=== PATIENT | female | born 1955 | race Caucasian/White ===

== ENCOUNTER 2018-01-27 19:39 | Emergency (ER) | payer BC ==
[~2018-01-27 19:39] MED LIST: ALPR0.25 PO; BUPR300T PO; CYCL10TA PO; DIAZ5TAB PO; ESCI20TA PO; FLUT50SP EACH NARE; MELO7.5T27 PO; PENL8SOL TOPICAL; VALA500T PO; ZALE5CAP PO
[2018-01-28] MEDS ORDERED: BACT800T5 PO (01:03)
== END 2018-01-27 20:53 | disposition left against medical advice (07) ==
LOC: PHED 19:39
DX: R68.89 Other general symptoms and signs (principal)
CPT/HCPCS: 99281

== ENCOUNTER 2018-01-27 20:28 | Emergency (ER) | payer BC ==
[~2018-01-27] VITALS: Ht 157.5 cm; Wt 72.0 kg
[2018-01-27 21:29] VITALS: BP 128/68; PULSE 121; RESP 16; TEMP 100.5; O2SAT 97
[2018-01-27] MEDS ORDERED: SODIUM CHLOR 0.9% 1000 ML INJ 1,000 ML IV SCH (22:08)
--- NOTE | 2018-01-27 22:13 | PD ---
HPI Chief Complaint: Pain: Acute or Chronic Time Seen by Provider: 21:59 Travel History International Travel<30 days: No Contact w/Intl Traveler<30days: No Traveled to known affect area: No History of Present Illness HPI 62-year-old female with past medical history only significant for depression. She presents for evaluation of diarrhea, fevers, chills, myalgias. She reports that she had Molplex roll yesterday evening. Approximately 1 hour later she developed severe diarrhea. She reports numerous episodes of watery stool throughout the night. Diarrhea resolved this morning but she did take some Imodium at some point today. She reports that this evening she developed fevers, chills, myalgias. Maximum temperature at home was 101.4. She reports dry mouth, sensation that she is dehydrated. She initially denied abdominal pain but on examination she has tenderness to palpation in the right lower quadrant. She denies nausea, vomiting, cough, congestion, sore throat, rash, recent travel, flank pain, dysuria. Denies any recent antibiotic use. No history of C. difficile. No history of abdominal surgery in the past. No other complaints at this time. [facility] Social History Alcohol Use: No Tobacco Use: No Allergies-Medications (Allergen,Severity, Reaction): Coded Allergies: codeine (Unverified Adverse Reaction, Intermediate, Headache, 01/27/18) Reported Meds & Prescriptions Reported Meds & Active Scripts Active Meloxicam 7.5 Mg Tab 7.5 Mg PO DAILY Valacyclovir (Valacyclovir HCl) 500 Mg Tab 500 Mg PO BID Diazepam 5 Mg Tab 5 Mg PO HS PRN Flexeril (Cyclobenzaprine HCl) 10 Mg Tab 10 Mg PO TID [place] (Nail Lacquer) Topical (Ciclopirox (Nail Lacquer) Topical) 8% Soln 1 Applic TOPICAL HS Reported Zaleplon 5 Mg Cap 5 Mg PO HS PRN Fluticasone Nasal [place] 50 Mcg/Act Naspr 50 Mcg EACH NARE BID 50 mcg/spray Bupropion HCl ER 24 HR (Bupropion HCl) 300 Mg Tab 300 Mg PO DAILY Escitalopram (Escitalopram Oxalate) 20 Mg Tab 20 Mg PO DAILY Alprazolam 0.25 Mg Tab 0.25 Mg PO Q8H PRN Review of Systems Except as stated in HPI: all other systems reviewed are Neg Physical Exam Narrative GENERAL: Pleasant well-developed well-nourished female no acute distress. She is febrile and tachycardic on initial examination. SKIN: Warm and dry. HEAD: Atraumatic. Normocephalic. EYES: Pupils equal and round. No scleral icterus. No injection or drainage. ENT: No nasal bleeding or discharge. Mucous membranes pink and moist. NECK: Trachea midline. No JVD. CARDIOVASCULAR: Regular rate and rhythm. No murmur appreciated. RESPIRATORY: No accessory muscle use. Clear to auscultation. Breath sounds equal bilaterally. GASTROINTESTINAL: Abdomen soft, mild right lower quadrant tenderness to palpation. No guarding. There is no CVA tenderness. MUSCULOSKELETAL: No obvious deformities. No clubbing. No cyanosis. No edema. NEUROLOGICAL: Awake and alert. No obvious cranial nerve deficits. Motor grossly within normal limits. Normal speech. PSYCHIATRIC: Appropriate mood and affect; insight and judgment normal. Data Data Last Documented VS Vital Signs Date Time Temp Pulse Resp B/P (MAP) Pulse Ox O2 Delivery O2 Flow Rate FiO2 01/27/18 21:29 100.5 121 16 128/68 (88) 97 Orders Orders Complete Blood Count With Diff (01/27/18 22:08) Comprehensive Metabolic Panel (01/27/18 22:08) Lipase (01/27/18 22:08) Lactic Acid (01/27/18 22:08) Urinalysis - C+S If Indicated (01/27/18 22:08) Ct Abd/Pel W Iv Contrast(Rout) (01/27/18 22:08) Sodium Chlor 0.9% 1000 Ml Inj (Ns 1000 M (01/27/18 22:08) Ketorolac Inj (Toradol Inj) (01/27/18 22:15) Sepsis Workup Initiated (01/27/18 ) Act Partial Throm Time (Ptt) (01/27/18 22:08) Prothrombin Time / Inr (Pt) (01/27/18 22:08) Creatine Kinase (Cpk) (01/27/18 22:08) Labs Laboratory Tests Test 01/27/18 22:15 White Blood Count 6.1 TH/MM3 Red Blood Count 4.72 MIL/MM3 Hemoglobin 14.6 GM/DL Hematocrit 42.1 % Mean Corpuscular Volume 89.1 FL Mean Corpuscular Hemoglobin 30.8 PG Mean Corpuscular Hemoglobin Concent 34.6 % Red Cell Distribution Width 13.4 % Platelet Count 268 TH/MM3 Mean Platelet Volume 7.6 FL Neutrophils (%) (Auto) 75.7 % Lymphocytes (%) (Auto) 14.9 % Monocytes (%) (Auto) 9.0 % Eosinophils (%) (Auto) 0.1 % Basophils (%) (Auto) 0.3 % Neutrophils # (Auto) 4.6 TH/MM3 Lymphocytes # (Auto) 0.9 TH/MM3 Monocytes # (Auto) 0.5 TH/MM3 Eosinophils # (Auto) 0.0 TH/MM3 Basophils # (Auto) 0.0 TH/MM3 CBC Comment DIFF FINAL Differential Comment Prothrombin Time 10.9 SEC Prothromb Time International Ratio 1.1 RATIO Activated Partial Thromboplast Time 25.9 SEC Blood Urea Nitrogen 15 MG/DL Creatinine 0.92 MG/DL Random Glucose 120 MG/DL Albumin 3.6 GM/DL Calcium Level 9.0 MG/DL Aspartate Amino Transf (AST/SGOT) 10 U/L Alanine Aminotransferase (ALT/SGPT) 16 U/L Sodium Level 140 MEQ/L Potassium Level 3.5 MEQ/L Chloride Level 108 MEQ/L Carbon Dioxide Level 22.3 MEQ/L Anion Gap 10 MEQ/L Estimat Glomerular Filtration Rate 62 ML/MIN Lactic Acid Level 2.4 mmol/L Lipase 111 U/L MDM Medical Decision Making Medical Screen Exam Complete: Yes Emergency Medical Condition: Yes Medical Record Reviewed: Yes Differential Diagnosis Gastroenteritis, food poisoning, dehydration, electrolyte abnormality, appendicitis, colitis, diverticulitis Narrative Course The patient will be given IV fluids, Toradol. Lab work, CT abdomen and pelvis, urinalysis have been ordered. At the end of my shift the patient was signed out pending lab work and imaging studies. Sebastien Mclean Jan 27, 2018 22:13
[2018-01-27] MEDS ORDERED: KETOROLAC TROMETHAMINE 30 MG/ML (IVP) VIAL IVP ONE (22:15)
[2018-01-27 22:28] LABS: AUTOMATED NEUTROPHIL # 4.6 TH/MM3 (1.8-7.7); BASOPHIL % 0.3 % (0.0-2.0); EOSINOPHIL % 0.1 % (0.0-4.0); HEMATOCRIT 42.1 % (35.0-46.0); HEMOGLOBIN 14.6 GM/DL (11.6-15.3); LYMPH % 14.9 % (9.0-44.0); LYMPHOCYTE # 0.9 TH/MM3 (1.0-4.8); MEAN CELL VOLUME 89.1 FL (80.0-100.0); MEAN CORPUSCULAR HEMOGLOBIN 30.8 PG (27.0-34.0); MEAN CORPUSCULAR HGB CONC 34.6 % (32.0-36.0); MEAN PLATELET VOLUME 7.6 FL (7.0-11.0); MONOCYTE # 0.5 TH/MM3 (0-0.9); NEUT % 75.7 % (16.0-70.0); PLATELET COUNT 268 TH/MM3 (150-450); RED BLOOD COUNT 4.72 MIL/MM3 (4.00-5.30); RED CELL DISTRIBUTION WIDTH 13.4 % (11.6-17.2); WHITE BLOOD COUNT 6.1 TH/MM3 (4.0-11.0)
[2018-01-27 22:43] LABS: INTERNATIONAL NORMALIZED RATIO 1.1 RATIO; PROTHROMBIN TIME - PATIENT 10.9 SEC (9.8-11.6)
[2018-01-27 22:53] LABS: ALBUMIN 3.6 GM/DL (3.4-5.0); AST (GOT) 10 U/L (15-37); BICARBONATE 22.3 MEQ/L (21.0-32.0); BLOOD UREA NITROGEN 15 MG/DL (7-18); CHLORIDE 108 MEQ/L (98-107); CREATININE 0.92 MG/DL (0.50-1.00); GLOMERULAR FILTRATION RATE 62 ML/MIN (>89); GLUCOSE,RANDOM 120 MG/DL (74-106); SODIUM (NA) 140 MEQ/L (136-145)
[2018-01-27 22:55] LABS: ALT (GPT) 16 U/L (10-53)
[2018-01-27 22:56] LABS: ALKALINE PHOSPHATASE 87 U/L (45-117); TOTAL BILIRUBIN ADULT 0.4 MG/DL (0.2-1.0); TOTAL PROTEIN 7.2 GM/DL (6.4-8.2)
[2018-01-27] MEDS ORDERED: SODIUM CHLOR 0.9% 1000 ML INJ 1,000 ML IV ONE (23:15)
[2018-01-27] MEDS ORDERED: IOHEXOL 350 MG/ML 10 ML VIAL (for RAD DIAG) IVCONTRAST ONE (23:50)
[2018-01-28 00:27] LABS: BILIRUBIN, URINE NEG (NEG); BLOOD, URINE SMALL (NEG); GLUCOSE,URINE NEG (NEG); HYALINE CAST, URINE 6 /lpf (RARE); KETONE, URINE NEG (NEG); MUCUS URINE MANY /lpf (OCC); NITRITE,URINE NEG (NEG); RENAL EPITHELIAL CELLS 1 /hpf; SQUAMOUS EPITHELIAL CELL URINE 11 /hpf (0-5); TRANSITIONAL EPI CELLS, URINE 2 /hpf; URINE COLOR YELLOW (YELLW/STRAW); URINE LEUKOCYTE ESTERASE LARGE (NEG)
--- NOTE | 2018-01-28 00:49 | RADRPT ---
EXAM DATE/TIME: 01/27/2018 23:41 [place] COMPARISON: No previous studies available for comparison. INDICATIONS : Abdominal pain with diarrhea. IV CONTRAST: 100 cc Omnipaque 350 (iohexol) IV ORAL CONTRAST: No oral contrast ingested. RADIATION DOSE: 6.64 CTDIvol (mGy) MEDICAL HISTORY : None SURGICAL HISTORY : None. ENCOUNTER: Initial ACUITY: 1 day PAIN SCALE: 6/10 LOCATION: Abdomen. TECHNIQUE: Volumetric scanning of the abdomen and pelvis was performed. Using automated exposure control and ad justment of the mA and/or kV according to patient size, radiation dose was kept as low as reasonably achievable to obtain optimal diagnostic quality images. DICOM format image data is available electro nically for review and comparison. FINDINGS: LOWER LUNGS: The visualized lower lungs are clear. Moderate-sized hiatal hernia. LIVER: Homogeneous density without lesion. There is no dilation of the biliary tree. No calcified gallston es. SPLEEN: Normal size without lesion. PANCREAS: Within normal limits. KIDNEYS: Normal in size and shape. There is no mass, stone or hydronephrosis. ADRENAL GLANDS: Within normal limits. VASCULAR: There is no aortic aneurysm. BOWEL/MESENTERY: Scattered colonic diverticula. No evidence of acute diverticulitis. No evidence of bowel dilatation. Appendix within normal limits. ABDOMINAL WALL: Within normal limits. RETROPERITONEUM: Retro aortic left renal vein. No enlarged lymph nodes. BLADDER: No wall thickening or mass. REPRODUCTIVE: Within normal limits. INGUINAL: There is no lymphadenopathy or hernia. MUSCULOSKELETAL: Within normal limits for patient age. CONCLUSION: 1. Scattered colonic diverticula. Moderate-sized hiatal hernia. 2. No acute findings identified in the abdomen and pelvis. Rufino Patterson MD on January 28, 2018 at 0:42 Board Certified Radiologist. This report was verified electronically.
[2018-01-28] MEDS ORDERED: SULFAMETHOXAZOLE-TRIMETHOPRIM DS 800-160 MG TAB PO ONE (01:00)
[2018-01-28] MEDS ORDERED: BACT800T5 PO (01:03)
--- NOTE | 2018-01-28 01:03 | PD ---
Data Data Last Documented VS Vital Signs Date Time Temp Pulse Resp B/P (MAP) Pulse Ox O2 Delivery O2 Flow Rate FiO2 01/27/18 21:29 100.5 121 16 128/68 (88) 97 Orders Orders Complete Blood Count With Diff (01/27/18 22:08) Comprehensive Metabolic Panel (01/27/18 22:08) Lipase (01/27/18 22:08) Lactic Acid (01/27/18 22:08) Urinalysis - C+S If Indicated (01/27/18 22:08) Ct Abd/Pel W Iv Contrast(Rout) (01/27/18 22:08) Sodium Chlor 0.9% 1000 Ml Inj (Ns 1000 M (01/27/18 22:08) Ketorolac Inj (Toradol Inj) (01/27/18 22:15) Sepsis Workup Initiated (01/27/18 ) Act Partial Throm Time (Ptt) (01/27/18 22:08) Prothrombin Time / Inr (Pt) (01/27/18 22:08) Creatine Kinase (Cpk) (01/27/18 22:08) Sodium Chlor 0.9% 1000 Ml Inj (Ns 1000 M (01/27/18 23:15) Iohexol 350 Inj (Omnipaque 350 Inj) (01/27/18 23:50) Lactic Acid (01/28/18 00:14) Urine Culture (01/27/18 23:50) Sulfamet-Trimeth Ds 800-160 Mg (Bactrim (01/28/18 01:00) Labs Laboratory Tests Test 01/27/18 22:15 01/27/18 23:50 01/28/18 00:14 White Blood Count 6.1 TH/MM3 Red Blood Count 4.72 MIL/MM3 Hemoglobin 14.6 GM/DL Hematocrit 42.1 % Mean Corpuscular Volume 89.1 FL Mean Corpuscular Hemoglobin 30.8 PG Mean Corpuscular Hemoglobin Concent 34.6 % Red Cell Distribution Width 13.4 % Platelet Count 268 TH/MM3 Mean Platelet Volume 7.6 FL Neutrophils (%) (Auto) 75.7 % Lymphocytes (%) (Auto) 14.9 % Monocytes (%) (Auto) 9.0 % Eosinophils (%) (Auto) 0.1 % Basophils (%) (Auto) 0.3 % Neutrophils # (Auto) 4.6 TH/MM3 Lymphocytes # (Auto) 0.9 TH/MM3 Monocytes # (Auto) 0.5 TH/MM3 Eosinophils # (Auto) 0.0 TH/MM3 Basophils # (Auto) 0.0 TH/MM3 CBC Comment DIFF FINAL Differential Comment Prothrombin Time 10.9 SEC Prothromb Time International Ratio 1.1 RATIO Activated Partial Thromboplast Time 25.9 SEC Blood Urea Nitrogen 15 MG/DL Creatinine 0.92 MG/DL Random Glucose 120 MG/DL Total Protein 7.2 GM/DL Albumin 3.6 GM/DL Calcium Level 9.0 MG/DL Alkaline Phosphatase 87 U/L Aspartate Amino Transf (AST/SGOT) 10 U/L Alanine Aminotransferase (ALT/SGPT) 16 U/L Total Bilirubin 0.4 MG/DL Sodium Level 140 MEQ/L Potassium Level 3.5 MEQ/L Chloride Level 108 MEQ/L Carbon Dioxide Level 22.3 MEQ/L Anion Gap 10 MEQ/L Estimat Glomerular Filtration Rate 62 ML/MIN Lactic Acid Level 2.4 mmol/L 1.1 mmol/L Total Creatine Kinase 45 U/L Lipase 111 U/L Urine Color YELLOW Urine Turbidity HAZY Urine pH 6.0 Urine Specific [place] 1.037 Urine Protein 30 mg/dL Urine Glucose (UA) NEG mg/dL Urine Ketones NEG mg/dL Urine Occult Blood SMALL Urine Nitrite NEG Urine Bilirubin NEG Urine Urobilinogen LESS THAN 2.0 MG/DL Urine Leukocyte Esterase LARGE Urine RBC 23 /hpf Urine WBC /hpf Urine Squamous Epithelial Cells 11 /hpf Urine Transitional Epithelial Cells 2 /hpf Urine Renal Epithelial Cells 1 /hpf Urine Calcium Carbonate Crystals OCC /hpf Urine Hyaline Casts 6 /lpf Urine Mucus MANY /lpf Microscopic Urinalysis Comment CULTURE INDICATED MDM Supervised Visit with HAROLDO: Yes Narrative Course I, Dr. Barrios, have reviewed the advance practice practitioner's documentation and am in agreement, met with the patient face to face, made the diagnosis, and the medical decision making was done by me. See his note for further details. Briefly this is a 62-year-old female who is here for evaluation of diarrhea and abdominal pain. The diarrhea has resolved. Her labs were remarkable for a lactate of 2.4 initially which improved to 1.1 on repeat after she received 2 L normal saline IV. After the patient was hydrated she reports feeling significantly improved, and on my exam she does not have any abdominal pain or discomfort. Her UA is suggestive of UTI and she will be started on Bactrim for this. CT abdomen pelvis shows scattered colonic diverticula, moderate sized hiatal hernia, no acute findings in the abdomen or pelvis. Patient made aware of all findings. She is resting comfortably. She is stable for discharge home with PMD follow-up this week. She was advised on when to return to the emergency department. She verbalizes understanding and agreement with plan. Diagnosis Primary Impression: Diarrhea Qualified Codes: R19.7 - Diarrhea, unspecified Additional Impression: UTI (urinary tract infection) Qualified Codes: N39.0 - Urinary tract infection, site not specified; R31.9 - Hematuria, unspecified Referrals: Primary Care Physician 3 days Additional Instruction: Follow-up with a primary care physician this week. Stay hydrated with plenty of fluids. Return to the emergency department for worsening symptoms or any other concerns. Scripts Sulfamethoxazole-Trimethoprim (Bactrim DS) 800-160 Mg Tab 1 TAB PO BID for Infection for 5 Days, #10 TAB 0 Refills Prov: Rell Barrios MD 01/28/18 Disposition: 01 DISCHARGE HOME Condition: Stable Rell Barrios MD Jan 28, 2018 01:03
== END 2018-01-28 01:49 | disposition home or self-care (01) ==
LOC: NEPC 20:28
DX: R19.7 Diarrhea, unspecified (principal); N39.0 Urinary tract infection, site not specified; B96.89 Other specified bacterial agents as the cause of diseases classified elsewhere; R10.31 Right lower quadrant pain; F32.9 Major depressive disorder, single episode, unspecified
CPT/HCPCS: 74177; 80053; 81001; 82550; 83605; 83690; 85025; 85610; 85730; 87086; 96361; 96374; 99284; J1885; J7030; Q9967